=== PATIENT | female | born 1960 | race African-American/Black ===

== ENCOUNTER 2017-02-07 15:44 | Emergency (ER) | payer OTHER ==
[~2017-02-07] VITALS: Ht 170.2 cm; Wt 100.0 kg
[~2017-02-07 15:44] MED LIST: ASPI-1035 PO; HYDR-519 PO; LISI-650 PO; METFORMIN; NAPR-679 PO; TRAM50TA73 PO
[2017-02-07 15:48] VITALS: BP 131/78
== END 2017-02-07 18:16 | disposition home or self-care (01) ==
LOC: ER 15:48
DX: H60.91 Unspecified otitis externa, right ear (principal); E11.9 Type 2 diabetes mellitus without complications; I11.0 Hypertensive heart disease with heart failure; I50.9 Heart failure, unspecified; F17.200 Nicotine dependence, unspecified, uncomplicated; Z79.82 Long term (current) use of aspirin; Z79.84 Long term (current) use of oral hypoglycemic drugs
CPT/HCPCS: 99283

== ENCOUNTER 2017-07-24 09:50 | Inpatient (IN) | payer OTHER ==
[~2017-07-24] VITALS: Ht 172.7 cm; Wt 102.1 kg
[~2017-07-24 09:50] MED LIST changes: -ASPI-1035 PO; +ASPI-1159 PO
[2017-07-24] MEDS ORDERED: ONDANSETRON HCL 4MG/2ML VIAL IV STA (10:41)
[2017-07-24] MEDS ORDERED: MORPHINE SULFATE 4 MG/ML CPJ (NOT FOR IM USE) IV STA (10:41)
[2017-07-24] MEDS ORDERED: SODIUM CHLORIDE 0.9% 1,000 ML IV ONE (10:41)
[2017-07-24 11:25] LABS: BASOPHILS % 0.7 % (0.0-2.0); EOSINOPHILS % 1.3 % (0.0-5.0); HEMATOCRIT. 38.3 % (36.0-48.0); HEMOGLOBIN. 12.3 g/dL (12.0-16.0); LYMPHOCYTES % 19.3 % (20.0-50.0); MEAN CORPUSCULAR HEMOGLOBIN 23.3 pg (28.0-32.0); MEAN CORPUSCULAR VOLUME 72.3 fL (81.0-99.0); MEAN PLATELET VOLUME 8.3 fl (7.4-10.4); MONOCYTES % 6.1 % (2.0-8.0); NEUTROPHILS % 72.6 % (40.0-76.0); PLATELET 265 x1000/uL (130-400); RED BLOOD CELL COUNT 5.29 mill/uL (4.2-5.4); RED CELL DISTRIBUTION WIDTH 14.3 % (11.6-14.6)
[2017-07-24 11:37] LABS: D-DIMER 1.2 mg/L FEU (<0.50); INR 1.1; PARTIAL THROMBOPLASTIN TIME 29.1 sec (23.4-31.0); PROTHROMBIN TIME 11.1 sec (9.4-11.6)
[2017-07-24 11:42] LABS: CARBON DIOXIDE 23 mEq/L (21-32); CHLORIDE 110 mEq/L (98-107); TROPONIN I < 0.02 ng/mL (0.00-0.04)
[2017-07-24] MEDS ORDERED: ASPIRIN 325MG EC TABLET PO ONE (12:30)
[2017-07-24] MEDS ORDERED: MAGNESIUM/ALUMINUM HYDROXIDE/SIMETHICONE 30ML UDC PO PRN (14:30)
[2017-07-24] MEDS ORDERED: IPRATROPIUM/ALBUTEROL 0.5-3(2.5)MG/3ML NEB INH PRN (14:30)
[2017-07-24] MEDS ORDERED: ACETAMINOPHEN 325MG TABLET PO PRN (14:30)
[2017-07-24] MEDS ORDERED: CLONIDINE 0.1MG TABLET PO PRN (14:30)
[2017-07-24] MEDS ORDERED: ONDANSETRON HCL 4MG/2ML VIAL IV PRN (14:30)
[2017-07-24 18:00] VITALS: BP 106/59
[2017-07-24] MEDS: HYDROCODONE/ACETAMINOPHEN 5/325MG TABLET PO PRN (18:48)
[2017-07-24] MEDS ORDERED: DEXTROSE 50% WATER 50ML SYRINGE IV PRN (19:45)
[2017-07-24 20:00] VITALS: BP 108/60
[2017-07-24] MEDS: LISINOPRIL 10MG TABLET PO SCH (20:55)
[2017-07-24] MEDS: INSULIN LISPRO 100 UNITS/ML SUBCUT SCH (21:00)
[2017-07-24] MEDS: BLOOD SUGAR DIAGNOSTIC STRIP TEST SCH (21:06)
[2017-07-24] MEDS: ENOXAPARIN 40MG/0.4ML SYR SUBCUT SCH (21:10)
[2017-07-24] MEDS ORDERED: IOHEXOL-350 100 ML BOTTLE ONE (22:00)
[2017-07-24] MEDS ORDERED: SODIUM CHLORIDE 0.9% 10ML VIAL ONE (22:00)
[2017-07-25] VITALS: BP 100/60
[2017-07-25 00:41] LABS: CREATINE KINASE 265 IU/L (26-192); CREATINE KINASE MB FRACTION 2.7 ng/mL (0.5-3.6); TROPONIN I < 0.02 ng/mL (0.00-0.04)
[2017-07-25] MEDS: HYDROCODONE/ACETAMINOPHEN 5/325MG TABLET PO PRN ×3 (01:22→21:44)
[2017-07-25 04:00] VITALS: BP 95/58
[2017-07-25] MEDS: BLOOD SUGAR DIAGNOSTIC STRIP TEST SCH ×4 (06:19→21:43)
[2017-07-25 06:35] LABS: BASOPHILS % 0.5 % (0.0-2.0); EOSINOPHILS % 2.2 % (0.0-5.0); HEMATOCRIT. 34.9 % (36.0-48.0); HEMOGLOBIN. 11.2 g/dL (12.0-16.0); LYMPHOCYTES % 33.2 % (20.0-50.0); MEAN CORPUSCULAR HEMOGLOBIN 23.4 pg (28.0-32.0); MEAN CORPUSCULAR VOLUME 72.7 fL (81.0-99.0); MEAN PLATELET VOLUME 8.7 fl (7.4-10.4); MONOCYTES % 11.2 % (2.0-8.0); NEUTROPHILS % 52.9 % (40.0-76.0); PLATELET 232 x1000/uL (130-400); RED CELL DISTRIBUTION WIDTH 14.5 % (11.6-14.6)
[2017-07-25 07:26] LABS: CLARITY URINE CLEAR (CLEAR); COLOR URINE YELLOW (YELLOW); GLUCOSE URINE NEGATIVE (NEGATIVE); KETONES URINE NEGATIVE (NEGATIVE); LEUKOCYTE ESTERASE URINE NEGATIVE (NEGATIVE); NITRITE URINE NEGATIVE (NEGATIVE); OCCULT BLOOD URINE NEGATIVE (NEGATIVE); PH URINE 5.5 (4.5-8.0); PROTEIN URINE NEGATIVE (NEGATIVE); SPECIFIC GRAVITY URINE 1.056 (1.005-1.030)
[2017-07-25 07:43] LABS: *AMPHETAMINES SCREEN URINE NEGATIVE (NEGATIVE); *BARBITURATES SCREEN URINE NEGATIVE (NEGATIVE); *BENZODIAZEPINES SCREEN URINE NEGATIVE (NEGATIVE); *COCAINE SCREEN URINE PRESUMTIVE POSITIVE (NEGATIVE); CANNABINOID URINE SCREEN NEGATIVE (NEGATIVE); METHADONE URINE SCREEN NEGATIVE (NEGATIVE); OPIATES URINE SCREEN PRESUMTIVE POSITIVE (NEGATIVE); PHENCYCLIDINE URINE SCREEN NEGATIVE (NEGATIVE)
[2017-07-25] MEDS: INSULIN LISPRO 100 UNITS/ML SUBCUT SCH ×4 (08:10→21:00)
[2017-07-25 08:33] VITALS: BP 90/51
[2017-07-25 08:47] LABS: CARBON DIOXIDE 29 mEq/L (21-32); CHLORIDE 106 mEq/L (98-107); CREATINE KINASE 227 IU/L (26-192); CREATINE KINASE MB FRACTION 2.2 ng/mL (0.5-3.6); HDL CHOLESTEROL 38 mg/dL (40-59); LDL CHOLESTEROL 84 mg/dL (5-100); TROPONIN I < 0.02 ng/mL (0.00-0.04)
[2017-07-25] MEDS: LISINOPRIL 10MG TABLET PO SCH ×2 (09:00→21:45)
[2017-07-25] MEDS: ASPIRIN 81MG EC TABLET PO SCH (09:20)
[2017-07-25] MEDS: ENOXAPARIN 40MG/0.4ML SYR SUBCUT SCH ×2 (09:21→21:45)
[2017-07-25 12:00] VITALS: BP 106/65
[2017-07-25 17:40] VITALS: BP 100/66
[2017-07-25 20:00] VITALS: BP 120/69
[2017-07-26] VITALS: BP 125/70
[2017-07-26 04:00] VITALS: BP 123/69
[2017-07-26] MEDS: BLOOD SUGAR DIAGNOSTIC STRIP TEST SCH ×2 (05:53→12:40)
[2017-07-26] MEDS: INSULIN LISPRO 100 UNITS/ML SUBCUT SCH ×2 (07:27→13:10)
[2017-07-26 07:35] LABS: BASOPHILS % 0.3 % (0.0-2.0); EOSINOPHILS % 3.3 % (0.0-5.0); HEMATOCRIT. 35.9 % (36.0-48.0); HEMOGLOBIN. 11.6 g/dL (12.0-16.0); LYMPHOCYTES % 42.8 % (20.0-50.0); MEAN CORPUSCULAR HEMOGLOBIN 23.3 pg (28.0-32.0); MEAN CORPUSCULAR VOLUME 72.4 fL (81.0-99.0); MEAN PLATELET VOLUME 8.9 fl (7.4-10.4); MONOCYTES % 9.3 % (2.0-8.0); NEUTROPHILS % 44.3 % (40.0-76.0); PLATELET 244 x1000/uL (130-400); RED BLOOD CELL COUNT 4.95 mill/uL (4.2-5.4); RED CELL DISTRIBUTION WIDTH 14.3 % (11.6-14.6)
[2017-07-26 08:00] VITALS: BP 121/72
[2017-07-26 08:06] LABS: CARBON DIOXIDE 28 mEq/L (21-32); CHLORIDE 107 mEq/L (98-107)
[2017-07-26] MEDS: LISINOPRIL 10MG TABLET PO SCH (08:46)
[2017-07-26] MEDS: HYDROCODONE/ACETAMINOPHEN 5/325MG TABLET PO PRN ×2 (08:46→13:54)
[2017-07-26] MEDS: ASPIRIN 81MG EC TABLET PO SCH (08:46)
[2017-07-26] MEDS: ENOXAPARIN 40MG/0.4ML SYR SUBCUT SCH (08:47)
[2017-07-26 12:00] VITALS: BP 106/41
[2017-07-26 14:00] VITALS: BP 111/64
== END 2017-07-26 18:34 | disposition home or self-care (01) | DRG 198 ==
LOC: ER 10:01 → ENRESERV 12:27 → 7WST 12:30 → EDBEDREQ 12:33 → EDBEDREQTM 12:33 → ENRESERV 12:34
PROVIDERS: ADMIT Internal Medicine; ATTEND Internal Medicine
DX: R07.89 Other chest pain (principal); I25.10 Atherosclerotic heart disease of native coronary artery without angina pectoris; I11.0 Hypertensive heart disease with heart failure; I50.9 Heart failure, unspecified; K76.0 Fatty (change of) liver, not elsewhere classified; F14.10 Cocaine abuse, uncomplicated; R10.9 Unspecified abdominal pain; E11.9 Type 2 diabetes mellitus without complications; F17.210 Nicotine dependence, cigarettes, uncomplicated; N20.0 Calculus of kidney; Z96.659 Presence of unspecified artificial knee joint; Z59.0 Homelessness; Z79.899 Other long term (current) drug therapy; Z79.84 Long term (current) use of oral hypoglycemic drugs
CPT/HCPCS: 36415; 71010; 71275; 74176; 80048; 80053; 80061; 80305; 81003; 82550; 82553; 82962; 83690; 83735; 83880; 84484; 85025; 85379; 85610; 85730; 87086; 93005; 93306; 96361; 96374; 96375; 99285; A4216; J1650; J2270; J2405; J7030; J7040; Q9967

== ENCOUNTER 2018-12-30 11:31 | Inpatient (IN) | payer MEDICAID, OTHER ==
[~2018-12-30] VITALS: Ht 172.7 cm; Wt 98.4 kg
[~2018-12-30 11:31] MED LIST changes: -TRAM50TA73 PO; +TRAM50TA94 PO
[2018-12-30] MEDS ORDERED: ONDANSETRON HCL 4MG/2ML INJ IV STA (21:01)
[2018-12-30] MEDS ORDERED: ALBUTEROL (0.083%) 2.5MG/3ML NEB HHN STA (21:01)
[2018-12-30] MEDS ORDERED: HYDROCODONE/ACETAMINOPHEN 5/325MG TABLET PO ONE (21:15)
[2018-12-30] MEDS ORDERED: NITROGLYCERIN OINT 1GM/INCH UDPKT TD ONE (21:15)
[2018-12-30] MEDS ORDERED: ASPIRIN 81MG TABLET PO ONE (21:15)
[2018-12-30 21:30] LABS: CHLORIDE 101 mEq/L (98-107)
[2018-12-30 21:32] LABS: BASOPHILS % 0.3 % (0.0-2.0); HEMATOCRIT. 44.8 % (36.0-48.0); HEMOGLOBIN. 14.4 g/dL (12.0-16.0); LYMPHOCYTES % 25.7 % (20.0-50.0); MEAN CORPUSCULAR HEMOGLOBIN 24.4 pg (28.0-32.0); MEAN CORPUSCULAR VOLUME 76.2 fL (81.0-99.0); MEAN PLATELET VOLUME 9.5 fl (7.4-10.4); PLATELET 153 x1000/uL (130-400); RED BLOOD CELL COUNT 5.88 mill/uL (4.2-5.4); RED CELL DISTRIBUTION WIDTH 15.7 % (11.6-14.6)
[2018-12-30 21:35] LABS: PARTIAL THROMBOPLASTIN TIME 28.4 sec (23.4-31.0); PROTHROMBIN TIME 9.8 sec (9.1-11.1)
[2018-12-30 21:39] LABS: CREATINE KINASE 66 IU/L (26-192)
[2018-12-30 21:41] LABS: CREATINE KINASE MB FRACTION < 1.0 ng/mL (0.5-3.6)
[2018-12-30 22:34] LABS: *AMPHETAMINES SCREEN URINE PRESUMTIVE POSITIVE (NEGATIVE); *BARBITURATES SCREEN URINE NEGATIVE (NEGATIVE); *BENZODIAZEPINES SCREEN URINE NEGATIVE (NEGATIVE); *COCAINE SCREEN URINE NEGATIVE (NEGATIVE); METHADONE URINE SCREEN NEGATIVE (NEGATIVE)
[2018-12-30 22:36] LABS: CANNABINOID URINE SCREEN NEGATIVE (NEGATIVE); OPIATES URINE SCREEN NEGATIVE (NEGATIVE); PHENCYCLIDINE URINE SCREEN NEGATIVE (NEGATIVE)
[2018-12-30] MEDS ORDERED: ACETAMINOPHEN 325MG TABLET PO PRN (23:45)
[2018-12-30] MEDS ORDERED: MAGNESIUM/ALUMINUM HYDROXIDE/SIMETHICONE 30ML UDC PO PRN (23:45)
[2018-12-30] MEDS ORDERED: ONDANSETRON HCL 4MG/2ML INJ IV PRN (23:45)
[2018-12-30] MEDS ORDERED: CLONIDINE 0.1MG TABLET PO PRN (23:45)
[2018-12-30] MEDS ORDERED: DOCUSATE SODIUM 100MG CAPSULE PO PRN (23:45)
[2018-12-30] MEDS ORDERED: IPRATROPIUM/ALBUTEROL 0.5-3(2.5)MG/3ML NEB INH PRN (23:45)
[2018-12-31 01:02] LABS: CHLORIDE 102 mEq/L (98-107)
[2018-12-31] MEDS ORDERED: POTASSIUM CHLORIDE 20MEQ TABLET SR PO ONE (01:15)
[2018-12-31 07:15] LABS: LDL CHOLESTEROL 90 mg/dL (5-100)
[2018-12-31 07:16] LABS: CREATINE KINASE 80 IU/L (26-192)
[2018-12-31 07:17] LABS: HDL CHOLESTEROL 55 mg/dL (40-59)
[2018-12-31 07:22] LABS: CREATINE KINASE MB FRACTION < 1.0 ng/mL (0.5-3.6)
[2018-12-31] MEDS: HYDROCODONE/ACETAMINOPHEN 5/325MG TABLET PO PRN (09:09)
[2018-12-31 09:30] VITALS: BP 107/56
[2018-12-31 10:00] VITALS: BP 110/65
[2018-12-31 12:00] VITALS: BP 98/53
[2018-12-31 13:36] LABS: BASOPHILS % 0.1 % (0.0-2.0); EOSINOPHILS % 0.5 % (0.0-5.0); HEMATOCRIT. 40.9 % (36.0-48.0); LYMPHOCYTES % 32.7 % (20.0-50.0); MEAN CORPUSCULAR HEMOGLOBIN 24.3 pg (28.0-32.0); MEAN CORPUSCULAR VOLUME 76.3 fL (81.0-99.0); MEAN PLATELET VOLUME 9.4 fl (7.4-10.4); MONOCYTES % 14.7 % (2.0-8.0); PLATELET 130 x1000/uL (130-400); RED BLOOD CELL COUNT 5.36 mill/uL (4.2-5.4); RED CELL DISTRIBUTION WIDTH 15.5 % (11.6-14.6)
[2018-12-31 16:00] VITALS: BP_SYST 100; BP_SYST 117; BP_DIAS 56; BP_DIAS 62
[2018-12-31 16:16] LABS: CREATINE KINASE 46 IU/L (26-192); CREATINE KINASE MB FRACTION < 1.0 ng/mL (0.5-3.6)
[2018-12-31] MEDS: ENOXAPARIN 30MG/0.3ML SYR SUBCUT SCH ×2 (16:34→21:19)
[2018-12-31] MEDS: ASPIRIN 81MG EC TABLET PO SCH (16:34)
[2018-12-31 20:00] VITALS: BP 99/60
[2019-01-01] VITALS: BP 116/51
[2019-01-01] MEDS: GUAIFENESIN 200MG/10ML SUGAR FREE UDC PO PRN ×2 (01:30→11:33)
[2019-01-01] MEDS: HYDROCODONE/ACETAMINOPHEN 5/325MG TABLET PO PRN (01:30)
[2019-01-01 04:00] VITALS: BP 99/54
[2019-01-01 08:00] VITALS: BP 83/46
[2019-01-01] MEDS: ENOXAPARIN 30MG/0.3ML SYR SUBCUT SCH ×2 (08:26→20:27)
[2019-01-01] MEDS: ASPIRIN 81MG EC TABLET PO SCH (08:26)
[2019-01-01] MEDS ORDERED: POTASSIUM CHLORIDE 20MEQ TABLET SR PO NR (11:00)
[2019-01-01 11:50] VITALS: BP 87/58
[2019-01-01 11:59] LABS: HEMATOCRIT. 39.8 % (36.0-48.0); HEMOGLOBIN. 12.7 g/dL (12.0-16.0); MEAN CORPUSCULAR HEMOGLOBIN 24.4 pg (28.0-32.0); MEAN CORPUSCULAR VOLUME 76.2 fL (81.0-99.0); MEAN PLATELET VOLUME 9.2 fl (7.4-10.4); PLATELET 143 x1000/uL (130-400); RED BLOOD CELL COUNT 5.22 mill/uL (4.2-5.4); RED CELL DISTRIBUTION WIDTH 15.6 % (11.6-14.6)
[2019-01-01 12:15] LABS: CHLORIDE 107 mEq/L (98-107)
[2019-01-01 12:19] LABS: PLATELET ESTIMATE NORMAL
[2019-01-01] MEDS: SODIUM CHLORIDE 0.9% 1,000 ML IV SCH (13:11)
[2019-01-01] MEDS ORDERED: POTASSIUM CHLORIDE 20MEQ/PACKET PO ONE (14:45)
[2019-01-01 16:00] VITALS: BP 97/76
[2019-01-01 20:51] VITALS: BP 90/48
[2019-01-02] MEDS: SODIUM CHLORIDE 0.9% 1,000 ML IV SCH ×2 (00:12→15:07)
[2019-01-02 00:27] VITALS: BP 115/66
[2019-01-02] MEDS: HYDROCODONE/ACETAMINOPHEN 5/325MG TABLET PO PRN ×2 (00:31→20:43)
[2019-01-02] MEDS: GUAIFENESIN 200MG/10ML SUGAR FREE UDC PO PRN ×2 (03:45→15:07)
[2019-01-02 04:00] VITALS: BP 116/81
[2019-01-02 06:53] LABS: BASOPHILS % 0.3 % (0.0-2.0); HEMATOCRIT. 38.7 % (36.0-48.0); HEMOGLOBIN. 12.2 g/dL (12.0-16.0); LYMPHOCYTES % 52.3 % (20.0-50.0); MEAN CORPUSCULAR VOLUME 76.4 fL (81.0-99.0); MEAN PLATELET VOLUME 9.2 fl (7.4-10.4); MONOCYTES % 12.8 % (2.0-8.0); NEUTROPHILS % 33.6 % (40.0-76.0); PLATELET 166 x1000/uL (130-400); RED BLOOD CELL COUNT 5.07 mill/uL (4.2-5.4); RED CELL DISTRIBUTION WIDTH 15.3 % (11.6-14.6)
[2019-01-02 07:01] LABS: CHLORIDE 110 mEq/L (98-107)
[2019-01-02 07:11] LABS: HDL CHOLESTEROL 39 mg/dL (40-59)
[2019-01-02 07:15] LABS: LDL CHOLESTEROL 86 mg/dL (5-100)
[2019-01-02 07:16] LABS: CREATINE KINASE 32 IU/L (26-192); CREATINE KINASE MB FRACTION < 1.0 ng/mL (0.5-3.6)
[2019-01-02 08:00] VITALS: BP 118/59
[2019-01-02] MEDS: ENOXAPARIN 30MG/0.3ML SYR SUBCUT SCH ×2 (08:46→20:40)
[2019-01-02] MEDS: ASPIRIN 81MG EC TABLET PO SCH (08:46)
[2019-01-02 12:00] VITALS: BP 117/73
[2019-01-02 16:00] VITALS: BP 106/63
[2019-01-02 20:34] VITALS: BP 109/64
[2019-01-03] VITALS: BP 142/58
[2019-01-03] MEDS: SODIUM CHLORIDE 0.9% 1,000 ML IV SCH ×2 (01:31→14:50)
[2019-01-03] MEDS: HYDROCODONE/ACETAMINOPHEN 5/325MG TABLET PO PRN ×2 (02:27→22:32)
[2019-01-03 04:40] VITALS: BP 114/69
[2019-01-03 06:36] LABS: BASOPHILS % 0.3 % (0.0-2.0); EOSINOPHILS % 0.9 % (0.0-5.0); HEMATOCRIT. 39.1 % (36.0-48.0); HEMOGLOBIN. 12.5 g/dL (12.0-16.0); LYMPHOCYTES % 50.4 % (20.0-50.0); MEAN CORPUSCULAR HEMOGLOBIN 24.4 pg (28.0-32.0); MEAN CORPUSCULAR VOLUME 76.4 fL (81.0-99.0); MEAN PLATELET VOLUME 8.4 fl (7.4-10.4); MONOCYTES % 11.3 % (2.0-8.0); NEUTROPHILS % 37.1 % (40.0-76.0); PLATELET 203 x1000/uL (130-400); RED BLOOD CELL COUNT 5.12 mill/uL (4.2-5.4); RED CELL DISTRIBUTION WIDTH 15.6 % (11.6-14.6)
[2019-01-03 07:07] LABS: CHLORIDE 112 mEq/L (98-107)
[2019-01-03 08:00] VITALS: BP 143/56
[2019-01-03] MEDS: ENOXAPARIN 30MG/0.3ML SYR SUBCUT SCH ×2 (08:33→20:31)
[2019-01-03] MEDS: ASPIRIN 81MG EC TABLET PO SCH (08:33)
[2019-01-03 12:00] VITALS: BP 114/67
[2019-01-03 16:00] VITALS: BP 119/72
[2019-01-03 20:54] VITALS: BP 105/65
[2019-01-04] VITALS: BP 107/62
[2019-01-04] MEDS: SODIUM CHLORIDE 0.9% 1,000 ML IV SCH ×2 (02:17→12:49)
[2019-01-04 04:23] VITALS: BP 114/68
[2019-01-04 08:00] VITALS: BP 101/65
[2019-01-04] MEDS: ASPIRIN 81MG EC TABLET PO SCH (08:48)
[2019-01-04] MEDS: HYDROCODONE/ACETAMINOPHEN 5/325MG TABLET PO PRN ×2 (08:48→21:11)
[2019-01-04] MEDS: ENOXAPARIN 30MG/0.3ML SYR SUBCUT SCH ×2 (08:48→21:10)
[2019-01-04 12:00] VITALS: BP 107/70
[2019-01-04 16:00] VITALS: BP 120/63
[2019-01-04 20:00] VITALS: BP 111/63
[2019-01-05] VITALS: BP 98/65
[2019-01-05] MEDS: SODIUM CHLORIDE 0.9% 1,000 ML IV SCH ×2 (03:45→15:23)
[2019-01-05 04:00] VITALS: BP 107/61
[2019-01-05 08:00] VITALS: BP 111/64
[2019-01-05] MEDS: ENOXAPARIN 30MG/0.3ML SYR SUBCUT SCH (09:24)
[2019-01-05] MEDS: ASPIRIN 81MG EC TABLET PO SCH (09:24)
[2019-01-05 12:00] VITALS: BP 106/55
[2019-01-05 16:00] VITALS: BP 101/70
[2019-01-05 17:44] VITALS: BP 101/70
== END 2019-01-05 18:28 | disposition home or self-care (01) | DRG 194 ==
LOC: ER 11:41 → 6WST 22:21 → ENRESERV 12-31 07:56
PROVIDERS: ADMIT Internal Medicine; ATTEND Internal Medicine
DX: I11.0 Hypertensive heart disease with heart failure (principal); I95.9 Hypotension, unspecified; M94.0 Chondrocostal junction syndrome [Tietze]; I50.22 Chronic systolic (congestive) heart failure; Z96.659 Presence of unspecified artificial knee joint; E11.9 Type 2 diabetes mellitus without complications; E87.6 Hypokalemia; M19.90 Unspecified osteoarthritis, unspecified site; Z79.84 Long term (current) use of oral hypoglycemic drugs; F17.210 Nicotine dependence, cigarettes, uncomplicated; F15.129 Other stimulant abuse with intoxication, unspecified; Z79.82 Long term (current) use of aspirin; Z82.49 Family history of ischemic heart disease and other diseases of the circulatory system; Z98.891 History of uterine scar from previous surgery; Z79.899 Other long term (current) drug therapy
CPT/HCPCS: 36415; 71045; 80048; 80061; 80305; 82550; 82553; 83735; 83880; 84443; 84484; 85379; 93005; 93306; 93970; 94640; 96374; 99291; J1650; J2405; J7030; J7611

== ENCOUNTER 2019-02-12 11:04 | Emergency (ER) | payer MEDICAID ==
[~2019-02-12] VITALS: Ht 177.8 cm; Wt 96.0 kg
[2019-02-12] MEDS ORDERED: IBUPROFEN 800MG TABLET PO ONE (11:45)
[2019-02-12 12:04] VITALS: BP 141/76
== END 2019-02-12 12:47 | disposition home or self-care (01) ==
LOC: ER 11:04
DX: M25.511 Pain in right shoulder (principal); H66.90 Otitis media, unspecified, unspecified ear; W01.0XXA Fall on same level from slipping, tripping and stumbling without subsequent striking against object, initial encounter; Y93.9 Activity, unspecified; Y92.9 Unspecified place or not applicable; Z79.82 Long term (current) use of aspirin; Z96.659 Presence of unspecified artificial knee joint
CPT/HCPCS: 73030; 99283

== ENCOUNTER 2019-03-16 12:36 | Inpatient (IN) | payer OTHER, MEDICAID ==
[~2019-03-16] VITALS: Ht 172.7 cm; Wt 101.6 kg
[2019-03-16] MEDS ORDERED: MORPHINE SULFATE 4 MG/ML CPJ (NOT FOR IM USE) IV STA (16:18)
[2019-03-16] MEDS ORDERED: ONDANSETRON HCL 4MG/2ML INJ IV STA (16:18)
[2019-03-16 16:42] LABS: BASOPHILS % 0.5 % (0.0-2.0); EOSINOPHILS % 1.4 % (0.0-5.0); HEMATOCRIT. 40.8 % (36.0-48.0); HEMOGLOBIN. 13.3 g/dL (12.0-16.0); LYMPHOCYTES % 29.6 % (20.0-50.0); MEAN CORPUSCULAR HEMOGLOBIN 24.5 pg (28.0-32.0); MEAN CORPUSCULAR VOLUME 75.1 fL (81.0-99.0); MEAN PLATELET VOLUME 8.9 fl (7.4-10.4); MONOCYTES % 7.6 % (2.0-8.0); NEUTROPHILS % 60.9 % (40.0-76.0); PLATELET 245 x1000/uL (130-400); RED BLOOD CELL COUNT 5.43 mill/uL (4.2-5.4); RED CELL DISTRIBUTION WIDTH 14.8 % (11.6-14.6)
[2019-03-16 16:47] LABS: CHLORIDE 109 mEq/L (98-107)
[2019-03-16] MEDS ORDERED: MORPHINE SULFATE 4 MG/ML CPJ (NOT FOR IM USE) IV ONE (17:30)
[2019-03-16] MEDS ORDERED: MAGNESIUM/ALUMINUM HYDROXIDE/SIMETHICONE 30ML UDC PO PRN (20:30)
[2019-03-16] MEDS ORDERED: DOCUSATE SODIUM 100MG CAPSULE PO PRN (20:30)
[2019-03-16] MEDS ORDERED: ENOXAPARIN 40MG/0.4ML SYR SUBCUT SCH (20:30)
[2019-03-16] MEDS ORDERED: ONDANSETRON HCL 4MG/2ML INJ IV PRN (20:30)
[2019-03-16] MEDS ORDERED: GUAIFENESIN 200MG/10ML SUGAR FREE UDC PO PRN (20:30)
[2019-03-16] MEDS ORDERED: ACETAMINOPHEN 325MG TABLET PO PRN (20:30)
[2019-03-16] MEDS ORDERED: CLONIDINE 0.1MG TABLET PO PRN (20:30)
[2019-03-16] MEDS: HYDROCODONE/ACETAMINOPHEN 5/325MG TABLET PO PRN (20:50)
[2019-03-16 23:05] LABS: CREATINE KINASE 68 IU/L (26-192)
[2019-03-16 23:06] LABS: CREATINE KINASE MB FRACTION 1.2 ng/mL (0.5-3.6)
[2019-03-17] MEDS: HYDROCODONE/ACETAMINOPHEN 5/325MG TABLET PO PRN ×4 (01:33→22:18)
[2019-03-17 04:41] LABS: BASOPHILS % 0.5 % (0.0-2.0); EOSINOPHILS % 1.6 % (0.0-5.0); HEMATOCRIT. 37.6 % (36.0-48.0); HEMOGLOBIN. 11.9 g/dL (12.0-16.0); LYMPHOCYTES % 44.2 % (20.0-50.0); MEAN CORPUSCULAR HEMOGLOBIN 24.1 pg (28.0-32.0); MEAN CORPUSCULAR VOLUME 75.8 fL (81.0-99.0); MEAN PLATELET VOLUME 8.4 fl (7.4-10.4); MONOCYTES % 9.3 % (2.0-8.0); NEUTROPHILS % 44.4 % (40.0-76.0); PLATELET 222 x1000/uL (130-400); RED BLOOD CELL COUNT 4.96 mill/uL (4.2-5.4); RED CELL DISTRIBUTION WIDTH 14.5 % (11.6-14.6)
[2019-03-17 04:46] LABS: CHLORIDE 109 mEq/L (98-107)
[2019-03-17 04:54] LABS: CREATINE KINASE 67 IU/L (26-192); HDL CHOLESTEROL 53 mg/dL (40-59); LDL CHOLESTEROL 88 mg/dL (5-100)
[2019-03-17 04:58] LABS: CREATINE KINASE MB FRACTION 1.7 ng/mL (0.5-3.6)
[2019-03-17] MEDS: ENOXAPARIN 30MG/0.3ML SYR SUBCUT SCH ×2 (09:00→21:00)
[2019-03-17] MEDS: ASPIRIN 81MG EC TABLET PO SCH (10:01)
[2019-03-17 10:10] VITALS: BP 119/82
[2019-03-17 13:48] VITALS: BP_SYST 122; BP_SYST 92; BP_DIAS 46; BP_DIAS 87
[2019-03-17 16:00] VITALS: BP 102/64
[2019-03-17 20:00] VITALS: BP 110/74
[2019-03-18] VITALS: BP 121/49
[2019-03-18 08:17] VITALS: BP 106/64
[2019-03-18] MEDS: ASPIRIN 81MG EC TABLET PO SCH (08:43)
[2019-03-18] MEDS: HYDROCODONE/ACETAMINOPHEN 5/325MG TABLET PO PRN ×2 (08:43→14:27)
[2019-03-18] MEDS: ENOXAPARIN 30MG/0.3ML SYR SUBCUT SCH (08:44)
[2019-03-18 14:11] VITALS: BP 122/84
[2019-03-18 18:25] VITALS: BP 138/80
== END 2019-03-18 19:05 | disposition home or self-care (01) | DRG 203 ==
LOC: ER 12:36 → 8WST 17:21 → EDBEDREQ 17:23 → SUPCPDRO 20:26 → ENRESERV 03-17 07:21
PROVIDERS: ADMIT Hospitalist; ATTEND Hospitalist
DX: R07.89 Other chest pain (principal); I11.0 Hypertensive heart disease with heart failure; I50.9 Heart failure, unspecified; E11.9 Type 2 diabetes mellitus without complications; F17.200 Nicotine dependence, unspecified, uncomplicated; Z96.659 Presence of unspecified artificial knee joint; Z59.0 Homelessness; Z71.6 Tobacco abuse counseling; Z79.84 Long term (current) use of oral hypoglycemic drugs; Z98.891 History of uterine scar from previous surgery; Z79.899 Other long term (current) drug therapy
CPT/HCPCS: 36415; 71045; 80061; 82550; 82553; 82962; 83880; 84484; 93005; 93306; 93970; 96374; 96375; 99285; J1650; J2270; J2405

== ENCOUNTER 2019-04-24 23:01 | Emergency (ER) | payer MEDICAID ==
[~2019-04-24] VITALS: Ht 167.6 cm; Wt 100.0 kg
[~2019-04-24 23:01] MED LIST changes: -ASPI-1159 PO; -LISI-650 PO; -NAPR-679 PO; -TRAM50TA94 PO
[2019-04-25] MEDS ORDERED: ASPIRIN 81MG TABLET PO ONE (01:00)
[2019-04-25 01:29] LABS: BASOPHILS % 0.9 % (0.0-2.0); EOSINOPHILS % 2.9 % (0.0-5.0); HEMATOCRIT. 39.2 % (36.0-48.0); HEMOGLOBIN. 12.7 g/dL (12.0-16.0); LYMPHOCYTES % 36.5 % (20.0-50.0); MEAN CORPUSCULAR HEMOGLOBIN 24.4 pg (28.0-32.0); MEAN CORPUSCULAR VOLUME 75.2 fL (81.0-99.0); MEAN PLATELET VOLUME 8.5 fl (7.4-10.4); MONOCYTES % 8.5 % (2.0-8.0); NEUTROPHILS % 51.2 % (40.0-76.0); PLATELET 253 x1000/uL (130-400); RED BLOOD CELL COUNT 5.21 mill/uL (4.2-5.4); RED CELL DISTRIBUTION WIDTH 14.3 % (11.6-14.6)
[2019-04-25 01:38] LABS: CHLORIDE 119 mEq/L (98-107)
[2019-04-25] MEDS: NITROGLYCERIN 0.4MG TABLET SL SL PRN (02:03)
[2019-04-25] MEDS ORDERED: KETOROLAC 30MG/ML VIAL IV ONE (03:45)
[2019-04-25 05:57] VITALS: BP 118/80
== END 2019-04-25 05:58 | disposition home or self-care (01) ==
LOC: ER 23:01
DX: R07.89 Other chest pain (principal); R51 Headache; F17.200 Nicotine dependence, unspecified, uncomplicated; I50.9 Heart failure, unspecified; H53.8 Other visual disturbances; E11.9 Type 2 diabetes mellitus without complications; Z98.890 Other specified postprocedural states; Z96.659 Presence of unspecified artificial knee joint
CPT/HCPCS: 36415; 71045; 80053; 81025; 83880; 84484; 85025; 93005; 96374; 99284; J1885

== ENCOUNTER 2019-06-08 09:39 | Emergency (ER) | payer MEDICAID ==
[~2019-06-08] VITALS: Ht 170.2 cm; Wt 100.0 kg
[2019-06-08 09:44] VITALS: BP 142/84
== END 2019-06-08 13:39 | disposition left against medical advice (07) ==
LOC: ER 09:53
DX: Z53.21 Procedure and treatment not carried out due to patient leaving prior to being seen by health care provider (principal)

== ENCOUNTER 2019-07-02 08:04 | Emergency (ER) | payer MEDICAID ==
[~2019-07-02] VITALS: Ht 172.7 cm; Wt 103.0 kg
[2019-07-02] MEDS ORDERED: PREDNISONE 20MG TABLET PO ONE (09:30)
[2019-07-02] MEDS ORDERED: DIAZEPAM 2 MG TABLET PO ONE (09:30)
[2019-07-02] MEDS ORDERED: KETOROLAC 60MG/2ML VIAL IM ONE (09:30)
[2019-07-02 09:37] VITALS: BP 115/77
== END 2019-07-02 11:06 | disposition home or self-care (01) ==
LOC: ER 08:04
DX: M54.5 Low back pain (principal); M54.32 Sciatica, left side; I50.9 Heart failure, unspecified; Z96.659 Presence of unspecified artificial knee joint
CPT/HCPCS: 96372; 99283; J1885; J7512

== ENCOUNTER 2019-07-07 14:28 | Emergency (ER) | payer MEDICAID ==
[~2019-07-07] VITALS: Ht 172.7 cm; Wt 109.0 kg
[2019-07-07] MEDS ORDERED: MORPHINE SULFATE 4 MG/ML CPJ (NOT FOR IM USE) IV STA (18:12)
[2019-07-07] MEDS ORDERED: SODIUM CHLORIDE 0.9% 1,000 ML IV ONE (18:12)
[2019-07-07] MEDS ORDERED: ONDANSETRON HCL 4MG/2ML INJ IV STA (18:12)
[2019-07-07] MEDS ORDERED: KETOROLAC 30MG/ML VIAL IV STA (18:12)
[2019-07-07 20:53] LABS: BASOPHILS % 0.4 % (0.0-2.0); EOSINOPHILS % 2.1 % (0.0-5.0); HEMATOCRIT. 40.6 % (36.0-48.0); HEMOGLOBIN. 13.2 g/dL (12.0-16.0); LYMPHOCYTES % 32.7 % (20.0-50.0); MEAN CORPUSCULAR HEMOGLOBIN 23.9 pg (28.0-32.0); MEAN CORPUSCULAR VOLUME 73.4 fL (81.0-99.0); MEAN PLATELET VOLUME 8.5 fl (7.4-10.4); MONOCYTES % 8.2 % (2.0-8.0); NEUTROPHILS % 56.6 % (40.0-76.0); PLATELET 237 x1000/uL (130-400); RED BLOOD CELL COUNT 5.53 mill/uL (4.2-5.4); RED CELL DISTRIBUTION WIDTH 14.9 % (11.6-14.6)
[2019-07-07 20:57] LABS: CHLORIDE 107 mEq/L (98-107)
[2019-07-07 21:00] LABS: COLOR URINE YELLOW (YELLOW); KETONES URINE TRACE (NEGATIVE); LEUKOCYTE ESTERASE URINE NEGATIVE (NEGATIVE); NITRITE URINE NEGATIVE (NEGATIVE); OCCULT BLOOD URINE NEGATIVE (NEGATIVE); PROTEIN URINE NEGATIVE (NEGATIVE); SPECIFIC GRAVITY URINE 1.023 (1.005-1.030); UROBILINOGEN URINE 0.2 E.U./dL (0.2-1.0)
[2019-07-07 21:02] LABS: PROTHROMBIN TIME 10.1 sec (9.6-11.0)
[2019-07-07 21:12] LABS: CLARITY URINE HAZY (CLEAR)
[2019-07-07] MEDS ORDERED: MAGNESIUM/ALUMINUM HYDROXIDE/SIMETHICONE 30ML UDC PO ONE (21:30)
[2019-07-07] MEDS ORDERED: FAMOTIDINE 20MG/2ML VIAL IV ONE (21:30)
[2019-07-07 23:21] VITALS: BP 118/68
== END 2019-07-07 23:24 | disposition home or self-care (01) ==
LOC: ER 14:28
DX: K29.70 Gastritis, unspecified, without bleeding (principal); E11.9 Type 2 diabetes mellitus without complications; I50.9 Heart failure, unspecified; Z59.0 Homelessness; Z98.890 Other specified postprocedural states
CPT/HCPCS: 36415; 71045; 74176; 80053; 81003; 83690; 83880; 84484; 85025; 85610; 85730; 87040; 87086; 93005; 93970; 96361; 96374; 96375; 99284; J1885; J2270; J2405; J3490; J7030

== ENCOUNTER 2019-07-08 07:12 | Emergency (ER) | payer MEDICAID ==
[~2019-07-08] VITALS: Ht 170.2 cm; Wt 100.0 kg
[2019-07-08 12:15] VITALS: BP 114/74
== END 2019-07-08 12:15 | disposition home or self-care (01) ==
LOC: ER 07:12
DX: R45.6 Violent behavior (principal); E11.9 Type 2 diabetes mellitus without complications; I50.9 Heart failure, unspecified; F17.200 Nicotine dependence, unspecified, uncomplicated; Z98.890 Other specified postprocedural states; Z96.659 Presence of unspecified artificial knee joint
CPT/HCPCS: 99283

== ENCOUNTER 2019-08-10 11:14 | Emergency (ER) | payer MEDICAID ==
[~2019-08-10] VITALS: Ht 170.2 cm; Wt 100.0 kg
[2019-08-10] MEDS ORDERED: MORPHINE SULFATE 4 MG/ML CPJ (NOT FOR IM USE) IV STA (12:00)
[2019-08-10] MEDS ORDERED: ONDANSETRON HCL 4MG/2ML INJ IV STA (12:00)
[2019-08-10 12:51] LABS: EOSINOPHILS % 1.5 % (0.0-5.0); HEMATOCRIT. 37.9 % (36.0-48.0); HEMOGLOBIN. 12.2 g/dL (12.0-16.0); LYMPHOCYTES % 20.1 % (20.0-50.0); MEAN CORPUSCULAR HEMOGLOBIN 23.9 pg (28.0-32.0); MEAN CORPUSCULAR VOLUME 74.3 fL (81.0-99.0); MEAN PLATELET VOLUME 8.1 fl (7.4-10.4); MONOCYTES % 7.5 % (2.0-8.0); NEUTROPHILS % 69.9 % (40.0-76.0); PLATELET 206 x1000/uL (130-400); RED CELL DISTRIBUTION WIDTH 15.4 % (11.6-14.6)
[2019-08-10 12:58] LABS: CHLORIDE 115 mEq/L (98-107)
[2019-08-10 12:59] LABS: PROTHROMBIN TIME 9.9 sec (9.6-11.0)
[2019-08-10 14:32] VITALS: BP 118/71
== END 2019-08-10 14:35 | disposition home or self-care (01) ==
LOC: ER 11:14
DX: R10.84 Generalized abdominal pain (principal); R11.0 Nausea; R19.7 Diarrhea, unspecified; I50.9 Heart failure, unspecified; E11.9 Type 2 diabetes mellitus without complications; Z98.890 Other specified postprocedural states; Z96.659 Presence of unspecified artificial knee joint
CPT/HCPCS: 36415; 74176; 80053; 83690; 85025; 85610; 96374; 96375; 99284; J2270; J2405; Z7610

== ENCOUNTER 2019-12-11 18:58 | Emergency (ER) | payer MEDICAID ==
[~2019-12-11] VITALS: Ht 170.2 cm; Wt 101.0 kg
[2019-12-11 23:06] LABS: BASOPHILS % 0.4 % (0.0-2.0); EOSINOPHILS % 1.5 % (0.0-5.0); HEMATOCRIT. 40.3 % (36.0-48.0); LYMPHOCYTES % 40.4 % (20.0-50.0); MEAN CORPUSCULAR HEMOGLOBIN 23.9 pg (28.0-32.0); MEAN CORPUSCULAR VOLUME 74.1 fL (81.0-99.0); MEAN PLATELET VOLUME 8.3 fl (7.4-10.4); MONOCYTES % 8.2 % (2.0-8.0); NEUTROPHILS % 49.5 % (40.0-76.0); PLATELET 225 x1000/uL (130-400); RED BLOOD CELL COUNT 5.44 mill/uL (4.2-5.4); RED CELL DISTRIBUTION WIDTH 15.1 % (11.6-14.6)
[2019-12-11 23:09] LABS: CHLORIDE 112 mEq/L (98-107)
[2019-12-12] MEDS ORDERED: OXYCODONE HCL/ACETAMINOPHEN 5/325MG TABLET PO ONE (00:30)
[2019-12-12 00:35] LABS: CLARITY URINE CLEAR (CLEAR); COLOR URINE YELLOW (YELLOW); KETONES URINE NEGATIVE (NEGATIVE); LEUKOCYTE ESTERASE URINE TRACE (NEGATIVE); NITRITE URINE NEGATIVE (NEGATIVE); OCCULT BLOOD URINE NEGATIVE (NEGATIVE); PROTEIN URINE NEGATIVE (NEGATIVE); UROBILINOGEN URINE 0.2 E.U./dL (0.2-1.0)
[2019-12-12 01:10] VITALS: BP 150/80
== END 2019-12-12 01:10 | disposition home or self-care (01) ==
LOC: ER 18:58
DX: M79.10 Myalgia, unspecified site (principal); R10.9 Unspecified abdominal pain; R11.0 Nausea; I50.9 Heart failure, unspecified; Z96.659 Presence of unspecified artificial knee joint; F17.200 Nicotine dependence, unspecified, uncomplicated
CPT/HCPCS: 36415; 80053; 81003; 85025; 93005; 99284

== ENCOUNTER 2019-12-24 14:51 | Emergency (ER) | payer OTHER ==
[~2019-12-24] VITALS: Ht 172.7 cm; Wt 100.0 kg
[2019-12-24] MEDS ORDERED: KETOROLAC 60MG/2ML VIAL IM STA (20:28)
[2019-12-24] MEDS ORDERED: ACETAMINOPHEN WITH CODEINE 300/30MG TABLET PO STA (20:28)
[2019-12-24 20:47] LABS: CLARITY URINE CLEAR (CLEAR); COLOR URINE YELLOW (YELLOW); KETONES URINE TRACE (NEGATIVE); LEUKOCYTE ESTERASE URINE NEGATIVE (NEGATIVE); NITRITE URINE NEGATIVE (NEGATIVE); OCCULT BLOOD URINE NEGATIVE (NEGATIVE); PROTEIN URINE NEGATIVE (NEGATIVE); SPECIFIC GRAVITY URINE 1.028 (1.005-1.030)
[2019-12-24 23:05] VITALS: BP 133/88
== END 2019-12-24 23:07 | disposition home or self-care (01) ==
LOC: ER 14:51
DX: R10.9 Unspecified abdominal pain (principal); M54.32 Sciatica, left side; I50.9 Heart failure, unspecified; Z96.649 Presence of unspecified artificial hip joint
CPT/HCPCS: 81003; 96372; 99283; J1885

== ENCOUNTER 2020-01-07 09:11 | Emergency (ER) | payer OTHER ==
[~2020-01-07] VITALS: Ht 165.1 cm; Wt 98.0 kg
[2020-01-07] MEDS ORDERED: KETOROLAC 30MG/ML VIAL IM ONE (10:30)
[2020-01-07 11:09] LABS: BASOPHILS % 0.4 % (0.0-2.0); EOSINOPHILS % 0.8 % (0.0-5.0); HEMATOCRIT. 41.3 % (36.0-48.0); HEMOGLOBIN. 13.3 g/dL (12.0-16.0); MEAN CORPUSCULAR HEMOGLOBIN 23.9 pg (28.0-32.0); MEAN CORPUSCULAR VOLUME 73.8 fL (81.0-99.0); MEAN PLATELET VOLUME 7.9 fl (7.4-10.4); MONOCYTES % 5.9 % (2.0-8.0); NEUTROPHILS % 56.9 % (40.0-76.0); PLATELET 262 x1000/uL (130-400); RED BLOOD CELL COUNT 5.59 mill/uL (4.2-5.4); RED CELL DISTRIBUTION WIDTH 14.7 % (11.6-14.6)
[2020-01-07 11:12] LABS: CHLORIDE 108 mEq/L (98-107)
[2020-01-07 11:56] LABS: CLARITY URINE CLEAR (CLEAR); COLOR URINE YELLOW (YELLOW); KETONES URINE NEGATIVE (NEGATIVE); LEUKOCYTE ESTERASE URINE NEGATIVE (NEGATIVE); NITRITE URINE NEGATIVE (NEGATIVE); OCCULT BLOOD URINE NEGATIVE (NEGATIVE); PROTEIN URINE NEGATIVE (NEGATIVE); SPECIFIC GRAVITY URINE 1.003 (1.005-1.030); UROBILINOGEN URINE 0.2 E.U./dL (0.2-1.0)
[2020-01-07 13:07] VITALS: BP 137/89
== END 2020-01-07 13:10 | disposition home or self-care (01) ==
LOC: ER 09:11
DX: R10.9 Unspecified abdominal pain (principal); I11.0 Hypertensive heart disease with heart failure; I50.9 Heart failure, unspecified; Z96.649 Presence of unspecified artificial hip joint
CPT/HCPCS: 36415; 74176; 80053; 81003; 83690; 85025; 96372; 99284; J1885

== ENCOUNTER 2021-03-18 11:09 | Emergency (ER) | payer MEDICAID, OTHER ==
[~2021-03-18] VITALS: Ht 172.7 cm; Wt 93.0 kg
[2021-03-18 11:21] VITALS: BP 121/68
[2021-03-18] MEDS ORDERED: GABA-532 PO (12:07)
[2021-03-18] MEDS ORDERED: NAPR-681 PO (12:07)
== END 2021-03-18 12:25 | disposition home or self-care (01) ==
LOC: ER 11:09
DX: M25.511 Pain in right shoulder (principal); I50.9 Heart failure, unspecified; Z91.81 History of falling
CPT/HCPCS: 73030; 99283

== ENCOUNTER 2021-12-10 06:31 | Emergency (ER) | payer MEDICAID, OTHER ==
[~2021-12-10] VITALS: Ht 165.1 cm; Wt 82.0 kg
[~2021-12-10 06:31] MED LIST changes: +GABA-532 PO; +NAPR-681 PO
[2021-12-10 06:34] VITALS: BP 148/98
== END 2021-12-10 09:46 | disposition left against medical advice (07) ==
LOC: ER 06:31
DX: Z53.21 Procedure and treatment not carried out due to patient leaving prior to being seen by health care provider (principal); I50.9 Heart failure, unspecified; M54.30 Sciatica, unspecified side; Z96.659 Presence of unspecified artificial knee joint

== ENCOUNTER 2025-10-02 15:53 | Emergency (ER) | payer MEDICAID ==
[~2025-10-02] VITALS: Ht 170.2 cm; Wt 102.0 kg
[~2025-10-02 15:53] MED LIST changes: +GABA-1180 PO; -GABA-532 PO; -HYDR-519 PO; -NAPR-681 PO; +PANT40TA51 MT
[2025-10-02 15:59] VITALS: O2SAT 97
[2025-10-02] MEDS ORDERED: CEPH500T MT (17:21)
[2025-10-02 17:26] VITALS: BP 128/81; PULSE 77; RESP 21; TEMP 36.6; O2SAT 96
== END 2025-10-02 17:26 | disposition home or self-care (01) ==
LOC: ER 15:53
DX: L02.818 Cutaneous abscess of other sites (principal); I10 Essential (primary) hypertension; Z79.899 Other long term (current) drug therapy
CPT/HCPCS: 99283